=== PATIENT | male | born 1985 | race Caucasian/White ===

== ENCOUNTER 2023-11-02 08:19 | Outpatient (OUT) | payer OTHER, SELFPAY ==
[2023-11-02 08:57] LABS: Basophils Absolute Auto 0.1 10^3/uL (0.0-0.1); Basophils Percent Auto 0.8 % (0.2-2.0); Eosinophils Absolute Auto 0.1 10^3/uL (0.0-0.7); Eosinophils Percent Auto 1.4 % (0.9-7.0); Hematocrit 45.6 % (42.0-54.0); Hemoglobin 15.5 g/dL (14.0-18.0); Immature Granulocytes Abs Auto 0.02 10^3/uL (0.00-0.03); Immature Granulocytes Pct Auto 0.3 % (0.0-0.5); Lymphocytes Absolute Auto 1.9 10^3/uL (1.2-3.8); Lymphocytes Percent Auto 25.6 % (20.5-60.0); Mean Corpuscular Hemoglobin 32.9 pg (25.9-34.0); Mean Corpuscular Volume 96.8 fL (80.0-94.0); Mean Platelet Volume 10.7 fL (9.5-13.5); Monocytes Absolute Auto 0.7 10^3/uL (0.3-0.8); Monocytes Percent Auto 9.9 % (1.7-12.0); Neutrophils Absolute Auto 4.6 10^3/uL (1.4-6.5); Platelet Count 245 10^3/uL (150-450); Red Blood Count 4.71 10^6/uL (4.70-6.10); Red Cell Distribution Width 11.6 % (11.0-15.0); White Blood Count 7.4 10^3/uL (4.0-11.0)
[2023-11-02 09:04] LABS: Estimated Average Glucose 108 mg/dL; Glycohemoglobin A1C 5.4 % (4.5-6.2)
[2023-11-02 09:51] LABS: Alanine Aminotransferase 43 U/L (16-63); Albumin Globulin Ratio 1.2; Albumin Level 4.3 g/dL (3.4-5.0); Alkaline Phosphatase 63 U/L (46-116); Anion Gap 13.1; Aspartate Amino Transferase 33 U/L (15-37); BUN Creatinine Ratio 11.3; Bilirubin Total 1.6 mg/dL (0.2-1.0); Calcium 9.3 mg/dL (8.5-10.1); Carbon Dioxide 31.1 mmol/L (21.0-32.0); Chloride 103 mmol/L (98-107); Chol HDL Ratio 2.9; Cholesterol 172 mg/dL (<=200); Estimated GFR (African America >60 (>=60); Estimated GFR (Non-African Ame >60 (>=60); Globulin 3.5 g/dL; Glucose 89 mg/dL (74-106); HDL Cholesterol 60 mg/dL (40-60); LDL Cholesterol Calculated 99.2 mg/dL; Potassium 4.2 mmol/L (3.5-5.1); Sodium 143 mmol/L (136-145); Total Protein 7.8 g/dL (6.4-8.2); Triglycerides 64 mg/dL (<=150); VLDL CHOLESTEROL 12.8 mg/dL
== END 2023-11-02 08:20 | disposition home or self-care (01) ==
LOC: LAB 08:20
PROVIDERS: PCP Family Medicine; Visit Provider Family Medicine
DX: Z00.00 Encounter for general adult medical examination without abnormal findings (principal); E78.5 Hyperlipidemia, unspecified; R73.09 Other abnormal glucose
CPT/HCPCS: 36415; 80053; 80061; 83036; 85025

== ENCOUNTER 2023-11-18 15:47 | Outpatient (OUT) | payer OTHER, SELFPAY ==
[2023-11-18 16:53] LABS: Alanine Aminotransferase 26 U/L (16-63); Albumin Globulin Ratio 1.2; Albumin Level 4.2 g/dL (3.4-5.0); Alkaline Phosphatase 61 U/L (46-116); Anion Gap 6.4; Aspartate Amino Transferase 21 U/L (15-37); BUN Creatinine Ratio 13.2; Bilirubin Total 1.1 mg/dL (0.2-1.0); Calcium 8.9 mg/dL (8.5-10.1); Carbon Dioxide 32.4 mmol/L (21.0-32.0); Chloride 102 mmol/L (98-107); Estimated GFR (African America >60 (>=60); Estimated GFR (Non-African Ame >60 (>=60); Globulin 3.4 g/dL; Glucose 87 mg/dL (74-106); Potassium 3.8 mmol/L (3.5-5.1); Sodium 137 mmol/L (136-145); Total Protein 7.6 g/dL (6.4-8.2)
== END 2023-11-18 15:48 | disposition home or self-care (01) ==
LOC: LAB 15:47
PROVIDERS: PCP Family Medicine; Visit Provider Family Medicine
DX: R74.8 Abnormal levels of other serum enzymes (principal)
CPT/HCPCS: 36415; 80053

== ENCOUNTER 2025-01-02 06:35 | Outpatient (OUT) | payer OTHER, SELFPAY ==
--- OUTSIDE RECORDS SUMMARY | 2025-01-02 06:40 | XMS_ITS | CCD ---
Author Organization [facility] Care Team Providers Care Library Paraprofessional Name Role Phone CHRISTY, DR VILLALOBOS Attending Unavailable HOY, DR VILLALOBOS Consulting Unavailable HOY, DR VILLALOBOS Primary Care Unavailable PAIGEY, DR VILLALOBOS Admitting Unavailable HOY, DR VILLALOBOS Attending Unavailable PAIGEY, DR VILLALOBOS Consulting Unavailable PAIGEY, DR VILLALOBOS Primary Care Unavailable HOY, DR VILLALOBOS Admitting Unavailable HOY, DR VILLALOBOS Consulting Unavailable HOY, DR VILLALOBOS Primary Care Unavailable HOY, DR VILLALOBOS Admitting Unavailable PAIGEY, DR VILLALOBOS Attending Unavailable Problems Active Problems Problem Classification Problem Date Documented Da te Episodic/Chronic Unclassified (2 sources) CONTACT W/AND (SUSP) EXPOS COVID-19; Translations: [CONTACT W/AND (SUSP) EXPOS COVID-19] Onset: 07-12-2022 Viral infection (1 source) COVID-19; Translations: [COVID-19] Onset: 07-12-2022 Past or Other Problems Problem Classification Problem Date Documented Da te Episodic/Chronic Deficiency and other anemia (1 source) Anemia, unspecified; Translations: [ANEMIA UNSPECIFIED] Onset: 09-02-2021 Episodic Diabetes mellitus without complication (1 source) Other abnormal glucose; Translations: [OTHER ABNORMAL GLUCOSE] Onset: 09-02-2021 Episodic Syncope (4 sources) Syncope and collapse; Translations: [SYNCOPE AND COLLAPSE] Onset: 09-27-2021 Episodic Unclassified (1 source) CONTACT W/AND (SUSP) EXPOS COVID-19; Translations: [CONTACT W/AND (SUSP) EXPOS COVID-19] Onset: 07-11-2022 Results Test Name Value Interpretation Reference Range [facility] SARS-CoV-2 (COVID-19) RNA JOSELYN+probe Ql (Unsp spec) Detected Critically abnormal NOT DETECTED [facility] Comment on above: Result Comment: This test is not yet approved or cleared by the [place] FDA. When there are no FDA-approved or cleared tests available, and other criteria are met, FDA can make tests available under an emergency access mechanism called an Emergency Use Authorization (EUA). The EUA for this test is supported by the Health Sanitarian of Health and Human Service's declaration that circumstances exist to justify the emergency use of in vitro diagnostics for the detection and/or diagnosis of the virus that causes COVID-19. This EUA will remain in effect for the duration of the COVID-19 declaration justifying emergency of IVDs, unless it is terminated or revoked by the FDA (after which the test may no longer be used). Performed By: #### C VDTBH #### [facility] [address] [place] [address] Dr. Kobe Phillips FREE THYROXINE INDEX T7on FTI 2.14 Normal [facility] Comment on above: Performed By: #### T 7, TSH #### [facility] [address] [place] [address] Dr. Kobe Phillips T3U 34.0 % Normal 23.5-40.5 [facility] Comment on above: Performed By: #### T 7, TSH #### [facility] [address] [place] [address] Dr. Kobe Phillips T4 [Mass/Vol] 6.30 ug/dL Normal 5.53-11.00 [facility] Comment on above: Performed By: #### T 7, TSH #### [facility] [address] [place] [address] Dr. Kobe Phillips TSHon 09-27-2021 TSH 3.672 uIU/mL Normal 0.470-4.680 [facility] Comment on above: Performed By: #### T 7, TSH #### [facility] [address] [place] [address] Dr. Kobe Phillips TSH RANGE SEE BELOW Normal [facility] Comment on above: Result Comment: <0.3 4 UIU/ml HYPERTHYROID 0.34-5.60 UIU/ml EUTHYROID >5.60 UIU/ml HYPOTHYROID Performed By: #### T 7, TSH #### [facility] [address] [place] [address] Dr. Kobe Phillips CBC AUTO DIFFon 08-28-2021 BASO # 0.0 103/ul Normal 0.0-0.1 [facility] Comment on above: Performed By: #### C BC #### [facility] [address] [place] [address] Dr. Kobe Phillips Basophils/100 WBC (Bld) 0.4 % Normal 0.2-2.0 [facility] Comment on above: Performed By: #### C BC #### [facility] [address] [place] [address] Dr. Kobe Phillips EO # 0.1 103/ul Normal 0.0-0.7 [facility] Comment on above: Performed By: #### C BC #### [facility] [address] [place] [address] Dr. Kobe Phillips Eosinophils/100 WBC (Bld) 0.7 % Critically low 0.9-7.0 [facility] Comment on above: Performed By: #### C BC #### [facility] [address] [place] [address] Dr. Kobe Phillips Erythrocyte distribution width (RBC) [Ratio] 11.7 % Normal 11.0-15.0 [facility] Comment on above: Performed By: #### C BC #### [facility] [address] [place] [address] Dr. Kobe Phillips Hematocrit (Bld) [Volume fraction] 41.4 % Critically low 42.0-54.0 [facility] Comment on above: Performed By: #### C BC #### [facility] [address] [place] [address] Dr. Kobe Phillips Hemoglobin (Bld) [Mass/Vol] 14.1 g/dL Normal 14.0-18.0 [facility] Comment on above: Performed By: #### C BC #### [facility] [address] [place] [address] Dr. Kobe Phillips IG # 0.03 10e3/ul Normal 0.00-0.03 [facility] Comment on above: Performed By: #### C BC #### [facility] [address] [address] [address] Kobe Phillips IG % 0.3 % Normal 0.0-0.5 [facility] Comment on above: Performed By: #### C BC #### [facility] [address] [place] [address] Dr. Kobe Phillips LYMPH # 2.5 103/ul Normal 1.2-3.8 [facility] Comment on above: Performed By: #### C BC #### [facility] [address] [place] [address] Dr. Kobe Phillips Lymphocytes/100 WBC (Bld) 26.2 % Normal 20.5-60.0 [facility] Comment on above: Performed By: #### C BC #### [facility] [address] [place] [address] Dr. Kobe Phillips MANUAL DIFF REQ NO Normal [facility] Comment on above: Performed By: #### C BC #### [facility] [address] [place] [address] Dr. Kobe Phillips MCH (RBC) [Entitic mass] 32.6 pg Normal 25.9-34.0 [facility] Comment on above: Performed By: #### C BC #### [facility] [address] [place] [address] Dr. Kobe Phillips MCHC (RBC) [Mass/Vol] 34.1 g/dL Normal 29.9-35.2 [facility] Comment on above: Performed By: #### C BC #### [facility] [address] [place] [address] Dr. Kobe Phillips MCV (RBC) [Entitic vol] 95.6 fL Critically high 80.0-94.0 [facility] Comment on above: Performed By: #### C BC #### [facility] [address] [place] [address] Dr. Kobe Phillips MONO # 0.8 103/ul Normal 0.3-0.8 [facility] Comment on above: Performed By: #### C BC #### [facility] [address] [address] [address] Kobe Phillips Monocytes/100 WBC (Bld) 7.9 % Normal 1.7-12.0 [facility] Comment on above: Performed By: #### C BC #### [facility] [address] [address] [address] Kobe Phillips NEUT # 6.2 103/ul Normal 1.4-6.5 [facility] Comment on above: Performed By: #### C BC #### [facility] [address] [address] [address] Kobe Phillips Neutrophils/100 WBC (Bld) 64.5 % Normal 43.0-75.0 [facility] Comment on above: Performed By: #### C BC #### [facility] [address] [address] [address] Kobe Phillips Platelet mean volume (Bld) [Entitic vol] 11.1 fL Normal 9.5-13.5 [facility] Comment on above: Performed By: #### C BC #### [facility] [address] [address] [address] Kobe Phillips PLT 39 103/ul Critically low 150-450 [facility] Comment on above: Result Comment: plts reviewed Performed By: #### C BC #### [facility] [address] [place] [address] Dr. Kobe Phillips RBC 4.33 106/ul Critically low 4.70-6.10 [facility] Comment on above: Performed By: #### C BC #### [facility] [address] [address] [address] Kobe Phillips WBC 9.6 103/ul Normal 4.0-11.0 [facility] Comment on above: Performed By: #### C BC #### [facility] [address] [address] [address] Kobe Phillips FREE THYROXINE INDEX T7on FTI 2.77 Normal [facility] Comment on above: Performed By: #### L IPID, CMP, T7, TSH #### [facility] [address] [address] [address] Kobe Phillips T3U 36.0 % Normal 23.5-40.5 [facility] Comment on above: Performed By: #### L IPID, CMP, T7, TSH #### [facility] [address] [address] [address] Kobe Phillips T4 [Mass/Vol] 7.70 ug/dL Normal 5.53-11.00 [facility] Comment on above: Performed By: #### L IPID, CMP, T7, TSH #### [facility] [address] [address] [address] Kobe Phillips GLYCOHEMOGLOBIN A1Con 2020 ADA RECOMMENDATION ADA THERAPEUTIC TARGET 6.0 - 7.0 ACTION SUGGESTED > 7.0 Normal [facility] Comment on above: Performed By: #### A 1C #### [facility] [address] [address] [address] Kobe Phillips Glucose [Mass/Vol] 105 mg/dL Normal [facility] Comment on above: Performed By: #### A 1C #### [facility] [address] [address] [address] Kobe Phillips HbA1c (Bld) [Mass fraction] 5.3 % Normal <=6.0 [facility] Comment on above: Performed By: #### A 1C #### [facility] [address] [address] [address] Kobe Phillips IRONon 08-28-2021 Iron [Mass/Vol] 104.0 ug/dL Normal 49.0-181.0 [facility] Comment on above: Performed By: #### I SARA #### [facility] [address] [address] [address] Kobe Phillips LIPID PROFILEon 08-28-2021 CHOL-HDL RATIO NORM SEE BELOW Normal [facility] Comment on above: Result Comment: 3.3 - 4.4 LOW RISK 4.4 - 7.1 AVERAGE RISK 7.1 - 11.0 MODERATE RISK >11.0 HIGH RISK Performed By: #### L IPID, CMP, T7, TSH #### [facility] [address] [address] [address] Kobe Phillips Cholesterol [Mass/Vol] 142 mg/dL Normal <=200 [facility] Comment on above: Performed By: #### L IPID, CMP, T7, TSH #### [facility] [address] [address] [address] Kobe Phillips Cholesterol in HDL [Mass/Vol] 44 mg/dL Normal [facility] Comment on above: Performed By: #### L IPID, CMP, T7, TSH #### [facility] [address] [address] [address] Kobe Phillips Cholesterol in LDL [Mass/Vol] 81.6 mg/dL Normal [facility] Comment on above: Performed By: #### L IPID, CMP, T7, TSH #### [facility] [address] [address] [address] Kobe Phillips Cholesterol.total/Ch olesterol in HDL [Mass ratio] 3.2 {ratio} Normal [facility] Comment on above: Performed By: #### L IPID, CMP, T7, TSH #### [facility] [address] [address] [address] Kobe Phillips HDL NORMAL > or = 60 mg/dl - LOW CARDIOVASCULAR RISK <40 mg/dl - HIGH CARDIOVASCULAR RISK Normal [facility] Comment on above: Performed By: #### L IPID, CMP, T7, TSH #### [facility] [address] [address] [address] Kobe Phillips LDL CALC NORMAL SEE BELOW Normal [facility] Comment on above: Result Comment: <100 mg/dl OPTIMAL 100 - 129 mg/dl NEAR OR ABOVE OPTIMAL 130 - 159 mg/dl BORDERLINE HIGH 160 - 189 mg/dl HIGH >190 mg/dl VERY HIGH Performed By: #### L IPID, CMP, T7, TSH #### [facility] [address] [address] [address] Kobe Phillips Triglyceride [Mass/Vol] 82 mg/dL Normal <=150 [facility] Comment on above: Performed By: #### L IPID, CMP, T7, TSH #### [facility] [address] [address] [address] Kobe Phillips VLDL CALC 16.4 mg/dL Normal [facility] Comment on above: Performed By: #### L IPID, CMP, T7, TSH #### [facility] [address] [address] [address] Kobe Phillips PROF 14(COMP METB)on 021 Albumin [Mass/Vol] 4.5 g/dL Normal 3.5-5.0 [facility] Comment on above: Performed By: #### L IPID, CMP, T7, TSH #### [facility] [address] [address] [address] Kobe Phillips Albumin/Globulin [Mass ratio] 1.5 {ratio} Normal [facility] Comment on above: Performed By: #### L IPID, CMP, T7, TSH #### [facility] [address] [address] [address] Kobe Phillips ALP [Catalytic activity/Vol] 51 U/L Normal 38-126 [facility] Comment on above: Performed By: #### L IPID, CMP, T7, TSH #### [facility] [address] [address] [address] Kobe Phillips ALT [Catalytic activity/Vol] 32 U/L Normal 21-72 [facility] Comment on above: Performed By: #### L IPID, CMP, T7, TSH #### [facility] [address] [address] [address] Kobe Phillips Anion gap [Moles/Vol] 12.0 mmol/L Normal [facility] Comment on above: Performed By: #### L IPID, CMP, T7, TSH #### [facility] [address] [address] [address] Kobe Phillips AST [Catalytic activity/Vol] 25 U/L Normal 17-59 [facility] Comment on above: Performed By: #### L IPID, CMP, T7, TSH #### [facility] [address] [address] [address] Kobe Phillips Bilirubin [Mass/Vol] 1.7 mg/dL Critically high 0.2-1.3 [facility] Comment on above: Performed By: #### L IPID, CMP, T7, TSH #### [facility] [address] [address] [address] Kobe Phillips Calcium [Mass/Vol] 9.1 mg/dL Normal 8.4-10.2 [facility] Comment on above: Performed By: #### L IPID, CMP, T7, TSH #### [facility] [address] [address] [address] Kobe Phillips Chloride [Moles/Vol] 99 mmol/L Normal 98-107 [facility] Comment on above: Performed By: #### L IPID, CMP, T7, TSH #### [facility] [address] [place] [address] Dr. Kobe Phillips CO2 [Moles/Vol] 29.9 mmol/L Normal 22.0-30.0 [facility] Comment on above: Performed By: #### L IPID, CMP, T7, TSH #### [facility] [address] [place] [address] Dr. Kobe Phillips Creatinine [Mass/Vol] 1.20 mg/dL Normal 0.66-1.25 [facility] Comment on above: Performed By: #### L IPID, CMP, T7, TSH #### [facility] [address] [place] [address] Dr. Kobe Phillips EGFR-AF KAZAKH >60 Normal >=60 [facility] Comment on above: Performed By: #### L IPID, CMP, T7, TSH #### [facility] [address] [place] [address] Dr. Kobe Phillips EGFR-NON AF KAZAKH >60 Normal >=60 [facility] Comment on above: Performed By: #### L IPID, CMP, T7, TSH #### [facility] [address] [place] [address] Dr. Kobe Phillips Globulin (S) [Mass/Vol] 3.1 g/dL Normal [facility] Comment on above: Performed By: #### L IPID, CMP, T7, TSH #### [facility] [address] [address] [address] Kobe Phillips Glucose [Mass/Vol] 86 mg/dL Normal 74-106 [facility] Comment on above: Performed By: #### L IPID, CMP, T7, TSH #### [facility] [address] [place] [address] Dr. Kobe Phillips Potassium [Moles/Vol] 3.9 mmol/L Normal 3.4-5.0 [facility] Comment on above: Performed By: #### L IPID, CMP, T7, TSH #### [facility] [address] [place] [address] Dr. Kobe Phillips Protein [Mass/Vol] 7.6 g/dL Normal 6.1-8.2 [facility] Comment on above: Performed By: #### L IPID, CMP, T7, TSH #### [facility] [address] [place] [address] Dr. Kobe Phillips Sodium [Moles/Vol] 137 mmol/L Normal 137-145 [facility] Comment on above: Performed By: #### L IPID, CMP, T7, TSH #### [facility] [address] [place] [address] Dr. Kobe Phillips Urea nitrogen [Mass/Vol] 14.0 mg/dL Normal 9.0-20.0 [facility] Comment on above: Performed By: #### L IPID, CMP, T7, TSH #### [facility] [address] [place] [address] Dr. Kobe Phillips Urea nitrogen/Creatinine [Mass ratio] 11.7 mg/mg Normal [facility] Comment on above: Performed By: #### L IPID, CMP, T7, TSH #### [facility] [address] [place] [address] Dr. Kobe Phillips TSHon 08-28-2021 TSH 5.789 uIU/mL Critically high 0.470-4.680 [facility] Comment on above: Performed By: #### L IPID, CMP, T7, TSH #### [facility] [address] [place] [address] Dr. Kobe Phillips TSH RANGE SEE BELOW Normal [facility] Comment on above: Result Comment: <0.3 4 UIU/ml HYPERTHYROID 0.34-5.60 UIU/ml EUTHYROID >5.60 UIU/ml HYPOTHYROID Performed By: #### L IPID, CMP, T7, TSH #### [facility] [address] [address] [address] Kobe Phillips Encounters Encounter Date Encounter Type Care Provider Facility Start: 07-11-2022 End: 07-11-[address] WILFREDO HARRISON Facility:[facility] Start: 09-27-2021 End: 09-28-[address] WILFREDO HARRISON Facility:[facility] Start: 08-28-2021 End: 08-29-[address] WILFREDO HARRISON Facility:[facility] Payers Date Payer Category Payer Unknown [id number] [id number] [id number] 1985 Unknown [id number] [id number] [id number] 1985 Unknown [id number] [id number] [id number] 1958 Unknown [id number] Summary Purpose Family History No Family History Records Found Advance Directives No Advanced Directives Records Found Additional Source Comments (unrecognized sect ion and content) No Status Records Found INFORMATION SOURCE (unrecogn ized section and content) DATE CREATED AUTHOR 07/16/2022 [facility] FOR RECORDS PERTAINING TO PATIENTS WHO ARE OR HAVE BEEN ENROLLED IN A CHEMICAL DEPENDENCY/SUBSTANCEABUSE PROGRAM, SOME INFORMATION MAY BE OMITTED. This clinical summary was aggregated from multiple sources. Caution should be exercised in using it in the provision of clinical care. This summary normalizes information from multiple sources, and as a consequence, information in this document may materially change the coding, format and clinical context of patient data. In addition, data may be omitted in some cases. CLINICAL DECISIONS SHOULD BE BASED ON THE PRIMARY CLINICAL RECORDS. [facility] [employer] [facility]. provides no warranty or guarantee of the accuracy or completeness of information in this document.
[2025-01-02 07:51] LABS: Basophils Absolute Auto 0.1 10^3/uL (0.0-0.1); Basophils Percent Auto 0.9 % (0.2-2.0); Eosinophils Absolute Auto 0.1 10^3/uL (0.0-0.7); Eosinophils Percent Auto 1.1 % (0.9-7.0); Hematocrit 42.1 % (42.0-54.0); Hemoglobin 14.5 g/dL (14.0-18.0); Immature Granulocytes Abs Auto 0.03 10^3/uL (0.00-0.03); Immature Granulocytes Pct Auto 0.4 % (0.0-0.5); Lymphocytes Absolute Auto 2.1 10^3/uL (1.2-3.8); Lymphocytes Percent Auto 27.8 % (20.5-60.0); Mean Corpuscular HGB Conc 34.4 g/dL (29.9-35.2); Mean Corpuscular Hemoglobin 33.3 pg (25.9-34.0); Mean Corpuscular Volume 96.6 fL (80.0-94.0); Mean Platelet Volume 11.4 fL (9.5-13.5); Monocytes Absolute Auto 0.7 10^3/uL (0.3-0.8); Monocytes Percent Auto 9.8 % (1.7-12.0); Neutrophils Absolute Auto 4.4 10^3/uL (1.4-6.5); Platelet Count 197 10^3/uL (150-450); Red Blood Count 4.36 10^6/uL (4.70-6.10); Red Cell Distribution Width 11.7 % (11.0-15.0); White Blood Count 7.4 10^3/uL (4.0-11.0)
[2025-01-02 07:56] LABS: Estimated Average Glucose 105 mg/dL; Glycohemoglobin A1C 5.3 % (4.5-6.2)
[2025-01-02 08:13] LABS: Alanine Aminotransferase 28 U/L (16-63); Albumin Globulin Ratio 1.3; Albumin Level 4.4 g/dL (3.4-5.0); Alkaline Phosphatase 63 U/L (46-116); Anion Gap 10.4; Aspartate Amino Transferase 23 U/L (15-37); BUN Creatinine Ratio 15.7; Calcium 9.2 mg/dL (8.5-10.1); Carbon Dioxide 30.3 mmol/L (21.0-32.0); Chloride 105 mmol/L (98-107); Chol HDL Ratio 2.5; Cholesterol 167 mg/dL (<=200); Estimated GFR (African America >60 (>=60 mL/min/1.73m^2); Estimated GFR (Non-African Ame >60 (>=60 mL/min/1.73m^2); Free T3 2.84 pg/mL (2.18-3.98); Globulin 3.3 g/dL; Glucose 94 mg/dL (74-106); HDL Cholesterol 67 mg/dL (40-60); Potassium 3.7 mmol/L (3.5-5.1); Sodium 142 mmol/L (136-145); Thyroid Stimulating Hormone 5.729 uIU/mL (0.358-3.740); Total Protein 7.7 g/dL (6.4-8.2); Triglycerides 64 mg/dL (<=150); VLDL CHOLESTEROL 12.8 mg/dL
[2025-01-03 08:12] LABS: Testosterone 535 ng/dL (264-916)
== END 2025-01-02 06:36 | disposition home or self-care (01) ==
PROVIDERS: PCP Family Medicine; Visit Provider Family Medicine
DX: Z00.00 Encounter for general adult medical examination without abnormal findings (principal); R53.83 Other fatigue
CPT/HCPCS: 36415; 80053; 80061; 83036; 84403; 84436; 84443; 84481; 85025

== ENCOUNTER 2025-03-11 15:38 | Outpatient (OUT) | payer OTHER, SELFPAY ==
--- OUTSIDE RECORDS SUMMARY | 2024-12-28 04:10 | XMS_ITS ---
Author Organization [facility] in [place] Address [address] [place] [address] Care Team Providers Care Internship Name Role Phone Marc Yates Primary Care Provider REASON FOR VISIT Needs yearly appt Encounters Encounter Location Date Provider Diagnosis [facility] [address] [place] [address] 12/28/2024 Marc Yates Plan Of Treatment No Information Progress Notes * Jered DISLADOB: 6 (39 yo M)Acc No.[id number]:12/28/2024 Patient: Harvey KINCAIDDONNIE Jered :1985 A ge:39 Y S ex:Male Address:[address] [place] [address] * true * Date: Generated for Pasquale aceves/Carlo/eTransmitting on: 0 03/11/2025 03:40 PM EDT
--- OUTSIDE RECORDS SUMMARY | 2024-12-30 11:45 | XMS_ITS ---
Author Organization [facility] in [place] Address [address] [place] [address] Care Team Providers Care Glass Fitter Name Role Phone SalvadorMarc nettles Primary Care Provider Allergies Allergen (clinical drug ingredient) Drug/Non Drug Allergy documented on EMR Reaction Allergy Type Onset Date Status cephalexin Cephalexin hives Drug Allergy Activ e REASON FOR VISIT ANNUAL Medications Medication SIG (Take, Route, Frequency, Duration) Notes Start Date End Date Status Triamcinolone Acetonide 0.1 % 1 application Externally Twice a day for 30 10/28/2023 Active Pantoprazole Sodium 40 MG TAKE 1 TABLET BY MOUTH EVERY DAY IN THE EVENING Orally Once a day for 30 days Active Social History Tobacco Use: Social History Observation Description Date Details (start date - stop date) Former Smoker NA - NA Tobacco Control (Standard) Question Answer Notes Tobacco use: Former smoker How long has it been since you last smoked? Less than 1 month AUDIT-C (Standard) Question Answer Notes Did you have a drink containing alcohol in the p ast year? No Points 0 Interpretation Negative Vital Signs Blood pressure systolic 122 mm Hg 12/31/19 25 Blood pressure diastolic 82 mm Hg 025 Height 78 in 12/30/2024 Weight 242 lbs 12/30/2024 BMI 27.96 kg/m2 12/30/2024 Encounters Encounter Location Date Provider Diagnosis [facility] [address] [place] [address] 12/30/2024 Marc Trudy Well adult Z00.0 0 Assessments Encounter Date Diagnosis (ICD Code) Assessment Notes Treatment Notes Treatment Clinical Notes Section Notes 12/30/2024 Well adult (ICD-10 - Z00.00) Plan Of Treatment Medication Medication Name Sig Start Date Stop Date Notes Pantoprazole Sodium 40 MG TAKE 1 TABLET BY MOUTH EVERY DAY IN THE EVENING Orally Once a day for 30 days Pending Test Test Name Order Date HEMOGLOBIN A1C (GLYCO) 12/30/2024 LIPID PANEL (CHOL/TRIG/HDL/LDL) 12/31/19 25 TESTOSTERONE, TOTAL 12/30/2024 THYROID PANEL (T4/TSH/FREE T3) 5 CMP (COMP MET BURNS) w/eGFR CKD-EPI 2024 CBC WITH DIFF 12/30/2024 Progress Notes * Jered DISLADOB: 6 (39 yo M)Acc No.[id number]:12/30/2024 Progress Note Patient: Jered DESAI Provider: Domitila Yates ([facility])MD :1985 A ge:39 Y S ex:Male Date:12/30/2024 Address:[address] [place] [address], [id number] Check In:03:39 PM ESTCheck O ut:04:52 PM EST Subjective: * Chief Complaints: * A NNUAL * HPI: G eneral: well adult needs refill of protonic - 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 * ROS: E ENT: hearing changes d enies. v isual changes d enies.?non-healing mouth sores d enies. s wollen glands or neck lumps d enies. h oarseness d enies. s ore throat d enies. d ifficulty swallowing d enies. n ose bleeds d enies. n ari congestion d enies. e ar ache d enies. e ar discharge?denies. r inging in ears d enies. l ight sensitivity d enies. e ye pain d enies. b lurring d enies. e ye irritation d enies. d ouble vision d enies.?vision loss d enies. G eneral/Constitutional: Sweats: D enies. F atigue d enies. S leep problems d enies. A norexia d enies. M alaise d enies. W eight loss d enies.?Fatigue or Weakness d enies. F ever or Chills d enies. C ardiovascular: Shortness of Breath w/lying flat d enies. L ightheadedness/dizziness d enies. C hest tightness/ heavy pressure d enies. S welling of legs, ankles, or feet d enies. W aking up with shortness of breath d enies. C hest pain denies. P alpitations d enies. W eight gain d enies. R espiratory: Chronic or frequent cough d enies. C oughing up blood?denies. D ifficulty breathing d enies. P roductive cough d enies. S noring?denies. S hortness of breath that awakens from sleep (PND) d enies. C hest pain d enies. S putum production d enies. W heezing d enies. M usculoskeletal: Joint pain d enies. J oint Fluid d enies. B ack pain d enies. K nee pain d enies. N vicente pain d enies. J oint Stiffness d enies. M uscle cramps d enies. W eakness of muscles d enies. A rthritis d enies. M uscle aches d enies. P ain in shoulder(s) d enies. S wollen joints d enies. * Active Problem List Z00.00 Well adult Modified On:10/28/2023W/U Status:confirmed * Medical History: * Surgical History: D enies Past Surgical History * Hospitalization/Major Diagno stic Procedure: D enies Past Hospitalization * Family History: F ather: alive. M other: alive, thyroid disease. S ister(s): alive. M aternal Grandmother: Breast Cancer, dementia, diagnosed with Other malignant neoplasm of unspecified site. M aternal aunt: Brain Cancer/Tumor, diagnosed with Other malignant neoplasm of unspecified site. 1 sister(s) - healthy. . * Social History: T obacco Use: T obacco Control (Standard) T obacco use: F ormer smoker H ow long has it been since you last smoked??Less than 1 month D rug/Alcohol: A TAISHA-C (Standard) D id you have a drink containing alcohol in the past year? N o P oints 0 I nterpretation N egative * Medications: T akingPantoprazole Sodium 40 MG Tablet Delayed Release TAKE 1 TABLET BY MOUTH EVERY DAY IN THE EVENING Triamcinolone Acetonide 0.1 % Cream 1 application Externally Twice a day Medication List reviewed and reconciled with the patientTaking Pantoprazole Sodium 40 MG Tablet Delayed Release TAKE 1 TABLET BY MOUTH EVERY DAY IN THE EVENING Taking Triamcinolone Acetonide 0.1 % Cream 1 application Externally Twice a day Medication List reviewed and reconciled with the patient * Allergies: C ephalexin: hives - Allergyno[Allergies Verified] Objective: * Vitals: W t:242lbs, Ht: 78 in, BP:122/82mm Hg, BMI:27.96Index, Ht-cm: 198.12 cm, Wt-k.77 kg. * Examination: P hysical Exam: GENERAL: w ell developed, well nourished, in no acute distress. HEAD: n ormocephalic/atraumatic. EYES: p upils equal, round and reactive to light, conjunctivae and sclerae normal. EARS: n o deformity or lesion of external ear, canals and TM appear normal bilaterally, TM's intact, not inflamed with normal light reflex, hearing grossly normal to conversational speech. NOSE: n o deformity, discharge, inflammation, or lesions.? MOUTH: m ucous membranes moist, normal oropharynx and posterior pharynx without lesions or exudates, tongue normal, dentition normal. NECK: n vicente supple, no masses or palpable cervical nodes, trachea midline, thyroid without nodules, masses, tenderness, or enlargement. CHEST: n o chest wall deformity, no chest wall tenderness.? LUNGS: n ormal respiratory effort and clear to auscultation, no wheezes, rales, or rhonchi, good air exchange. CARDIO: r egular rate and rhythm, normal S1 and S2, nor murmur, rub, or gallop. PULSES: n ormal capillary refill. ABDOMEN: s oft, non-distended, non-tender, no masses. MUSCULOSKELETAL: n o deformity or scoliosis noted, normal range of motion, joints normal, no erythema, edema, effusion, or ecchymosis. EXTREMITY: n o clubbing, cyanosis, edema, or deformity with normal ROM in both upper and lower bilateral extremities. NEUROLOGIC: g rossly normal. SKIN: n o rashes, ulcerations, or suspicious lesions. LYMPH NODES: n o cervical adenopathy, nodes normal. MENTAL STATUS: a lert and oriented x3, normal mood and affect. Assessment: * Assessment: 1. 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 3 weeks off cigarettes Examination Category Sub-Category Detail Notes Category Not es Physical Exam GENERAL: well developed, well nourished, in no acute distress HEAD: normocephalic/atraum atic EYES: pupils equal, round and reactive to light, conjunctivae and sclerae normal EARS: no deformity or lesi on of external ear, canals and TM appear normal bilaterally, TM's intact, not inflamed with normal light reflex, hearing grossly normal to conversational speech NOSE: no deformity, discha rge, inflammation, or lesions MOUTH: mucous membranes ver[address], normal oropharynx and posterior pharynx without lesions or exudates, tongue normal, dentition normal NECK: neck supple, no mass es or palpable cervical nodes, trachea midline, thyroid without nodules, masses, tenderness, or enlargement CHEST: no chest wall deform ity, no chest wall tenderness LUNGS: normal respiratory e ffort and clear to auscultation, no wheezes, rales, or rhonchi, good air exchange CARDIO: regular rate and rhy thm, normal S1 and S2, nor murmur, rub, or gallop PULSES: normal capillary ref ill ABDOMEN: soft, non-distended, non-tender, no masses RECTAL: MUSCULOSKELETAL: no deformity or scol iosis noted, normal range of motion, joints normal, no erythema, edema, effusion, or ecchymosis EXTREMITY: no clubbing, cyanosi s, edema, or deformity with normal ROM in both upper and lower bilateral extremities NEUROLOGIC: grossly normal SKIN: no rashes, ulceratio ns, or suspicious lesions LYMPH NODES: no cervical adenopat hy, nodes normal MENTAL STATUS: alert and oriented x 3, normal mood and affect
--- OUTSIDE RECORDS SUMMARY | 2025-01-02 07:40 | XMS_ITS ---
Author Organization [facility] in [place] Address [address] [place] [address] Care Team Providers Care Steaming Cabinet Tender Name Role Phone Marc Yates Primary Care Provider REASON FOR VISIT labs Problems Problem Type SNOMED Code ICD Code Onset Dates Problem Status W/U Status Risk Notes Problem Hypothyroid (E03.9) Active confirmed Encounters Encounter Location Date Provider Diagnosis [facility] [address] [place] [address] 01/02/2025 Marc Yates Hypothyroid E03. 9 Assessments Encounter Date Diagnosis (ICD Code) Assessment Notes Treatment Notes Treatment Clinical Notes Section Notes 01/02/2025 Hypothyroid (ICD-10 - E03.9) Plan Of Treatment Pending Test Test Name Order Date THYROID PANEL (T4/TSH/FREE T3) Progress Notes * Jered DISLADOB: 6 (39 yo M)Acc No.[id number]:01/02/2025 Patient: Jered DESAI :1985 A ge:39 Y S ex:Male Address:[address] [place] [address] Subjective: * Chief Complaints: * L abs * Medical History: * Surgical History: * Hospitalization/Major Diagno stic Procedure: * Medications: Objective: * Vitals: * Physical Examination: Assessment: * Assessment: 1. H ypothyroid - E03.9 (Primary) Plan: * Treatment: * Procedure Codes: * true * Date: Generated for Printi ng/Faxing/Romy on: 0 03/11/2025 03:40 PM EDT
--- OUTSIDE RECORDS SUMMARY | 2025-03-11 15:40 | XMS_ITS | Patient Health Record ---
Author Organization [facility] in [place] Address [address] [place] [address] Care Team Providers Care Nursing Student Name Role Phone Marc Yates Primary Care Provider [phone] Allergies Allergen (clinical drug ingredient) Drug/Non Drug Allergy documented on EMR Reaction Allergy Type Onset Date Status cephalexin Cephalexin hives Drug Allergy Activ e Results Component Value Reference Range Notes CBC AUTO DIFF Reviewed date:01/02/2025 11:43:41 AM Interpretation: Performing Lab: Notes/Report: [facility] , White Blood Count 7.4 4.0-11.0 10 3/uL Red Blood Count 4.36 4.70-6.10 10 6/uL Hemoglobin 14.5 14.0-18.0 g/dL Hematocrit 42.1 42.0-54.0 % Mean Corpuscular Volume 96.6 80.0-94.0 fL Mean Corpuscular Hemoglobin 33.3 25.9-34.0 pg Mean Corpuscular HGB Conc 34.4 29.9-35.2 g/dL Red Cell Distribution Width 11.7 11.0-15.0 % Platelet Count 197 150-450 10 3/uL Mean Platelet Volume 11.4 9.5-13.5 fL Neutrophils Percent Auto 60.0 43.0-75.0 % Lymphocytes Percent Auto 27.8 20.5-60.0 % Monocytes Percent Auto 9.8 1.7-12.0 % Eosinophils Percent Auto 1.1 0.9-7.0 % Basophils Percent Auto 0.9 0.2-2.0 % Immature Granulocytes Pct Auto 0.4 0.0-0.5 % Neutrophils Absolute Auto 4.4 1.4-6.5 10 3/uL Lymphocytes Absolute Auto 2.1 1.2-3.8 10 3/uL Monocytes Absolute Auto 0.7 0.3-0.8 10 3/uL Eosinophils Absolute Auto 0.1 0.0-0.7 10 3/uL Basophils Absolute Auto 0.1 0.0-0.1 10 3/uL Immature Granulocytes Abs Auto 0.03 0.00-0.03 10 3/uL Performing Lab: see note ML - [facility] FREE T3 Reviewed date:01/02/2025 11:43:41 AM Interpretation: Performing Lab: Notes/Report: [facility] , Free T3 2.84 2.18-3.98 pg/mL Performing Lab: see note ML - [facility] GLYCOHEMOGLOBIN A1C Reviewed date:01/02/2025 11:43:41 AM Interpretation: Performing Lab: Notes/Report: [facility] , Glycohemoglobin A1C 5.3 4.5-6.2 % ADA RECOMMENDED LIMIT 4.0 - 6.0 ADA THERAPEUTIC TARGET < 7.0 ACTION SUGGESTED > 7.0 Estimated Average Glucose 105 Performing Lab: see note ML - [facility] LB LIPID PROFILE Reviewed date:01/02/2025 11:43:41 AM Interpretation: Performing Lab: Notes/Report: [facility] , Triglycerides 64 <=150 mg/dL Cholesterol 167 <=200 mg/dL HDL Cholesterol 67 40-60 mg/dL <40 mg/dl - HIGH CARDIOVASCULAR RISK > or =60 mg/dl - LOW CARDIOVASCULAR RISK LDL Cholesterol Calculated 88.0 130-159 mg/dl BORDERLINE HIGH 160-189 mg/dl HIGH >190 mg/dl VERY HIGH 100-129 mg/dl NEAR OR ABOVE OPTIMAL <100 mg/dl OPTIMAL VLDL CHOLESTEROL 12.8 Chol HDL Ratio 2.5 >11.0 HIGH RISK 7.1 - 11.0 MODERATE RISK 3.3 - 4.4 LOW RISK 4.4 - 7.1 AVERAGE RISK Performing Lab: see note - [facility] LB PROF 14(COMP METB) Reviewed date:01/02/2025 11:43:41 AM Interpretation: Performing Lab: Notes/Report: [facility] , Sodium 142 136-145 mmol/L Potassium 3.7 3.5-5.1 mmol/L Chloride 105 98-107 mmol/L Carbon Dioxide 30.3 21.0-32.0 mmol/L Anion Gap 10.4 Glucose 94 74-106 mg/dL Blood Urea Nitrogen 16.0 7.0-18.0 mg/dL Creatinine 1.02 0.70-1.30 mg/dL Estimated GFR ( Tracie >60 >=60 mL/min/1.73m 2 Estimated GFR (Non- Kristine >60 >=60 mL/min/1.73m 2 BUN Creatinine Ratio 15.7 Calcium 9.2 8.5-10.1 mg/dL Bilirubin Total 1.0 0.2-1.0 mg/dL Aspartate Amino Transferase 23 15-37 U/L Alanine Aminotransferase 28 16-63 U/L Alkaline Phosphatase 63 46-116 U/L Total Protein 7.7 6.4-8.2 g/dL Albumin Level 4.4 3.4-5.0 g/dL Globulin 3.3 Albumin Globulin Ratio 1.3 Performing Lab: see note ML - [facility] LB T4 Reviewed date:01/02/2025 11:43:41 AM Interpretation: Performing Lab: Notes/Report: [facility] , T4 Thyroxine 6.30 4.50-12.10 ug/dL Performing Lab: see note ML - [facility] LB TSH Reviewed date:01/02/2025 11:43:41 AM Interpretation: Performing Lab: Notes/Report: [facility] , Thyroid Stimulating Hormone 5.729 0.358-3.740 u IU/mL Performing Lab: see note ML - [facility] LB Testosterone Reviewed date:01/03/2025 09:38:34 AM Interpretation: Performing Lab: Notes/Report: [facility] , Testosterone 535 264-916 ng/dL healthy nonobese males (BMI <30) between 19 and 39 years Performed at: [facility] Customer Advisor Specialist: Abdiel Bee PhD, Phone: [phone] [email or web address] [email or web address] [id number]. PMID: [id number]. [address] [place], [place] [id number] Adult male reference interval is based on a population of Performing Lab: see note - [facility] Reason For Referral No Information Medications Medication SIG (Take, Route, Frequency, Duration) [...] stop date) Former Smoker NA - NA Alcohol Screen (Audit-C) Question Answer Notes Did you have a drink containing alcohol in the p ast year? No Points 0 Interpretation Negative Tobacco Control (Standard) Question Answer Notes Tobacco use: Former smoker How long has it been since you last smoked? Less than 1 month AUDIT-C (Standard) Question Answer Notes Did you have a drink containing alcohol in the p ast year? No Points 0 Interpretation Negative Problems Problem Type SNOMED Code ICD Code Onset Dates Problem Status W/U Status Risk Notes Problem Hypothyroid (E03.9) Active confirmed Problem Well adult (378249295) Well adult (Z00.00) Active confirmed Vital Signs Blood pressure diastolic 82 mm Hg 12/30/2024 Height 78 in 12/30/2024 Blood pressure systolic 122 mm Hg 12/30/2024 Weight 242 lbs 12/30/2024 BMI 27.96 kg/m2 12/30/2024 Encounters Encounter Location Date Provider Diagnosis [id number] [place] [address] 12/28/2024 Mrac Hoy [facility] [address] [place] [address] 01/02/2025 Marc Hoy Hypothyroid E03. [address] [address] 12/30/2024 Marc Hoy Well adult Z00.0 0 Assessments Encounter Date Diagnosis (ICD Code) Assessment Notes Treatment Notes Treatment Clinical Notes Section Notes 12/30/2024 Well adult (ICD-10 - Z00.00) 01/02/2025 Hypothyroid (ICD-10 - E03.9) Plan Of Treatment Pending Test Test Name Order Date CMP (COMPLETE METABOLIC PANEL) 4 CMP (COMPLETE METABOLIC PANEL) 4 HEMOGLOBIN A1C (GLYCO) 10/28/2023 HEMOGLOBIN A1C (GLYCO) 12/30/2024 LIPID PANEL (CHOL/TRIG/HDL/LDL) 12/31/19 25 LIPID PANEL (CHOL/TRIG/HDL/LDL) 10/28/19 24 CBC WITH DIFF 10/28/2023 PROF 14(COMP METB) 11/03/2023 PROF CHEM 8 (BAS METB) 11/03/2023 TESTOSTERONE, TOTAL 12/30/2024 THYROID PANEL (T4/TSH/FREE T3) 5 THYROID PANEL (T4/TSH/FREE T3) 5 CMP (COMP MET BURNS) w/eGFR CKD-EPI 2024 CBC WITH DIFF 12/30/2024 Insurance Providers Payer Name Payer Address Payer Phone Subscriber Number Group Number Insured Name Patient Relationship to Insured Coverage Start Date Coverage End Date [facility] [address] [place], [place] [id number] Jered New Self - patient is the insured Medical (General) History Medical History History ICD Code COVID-19 U07.1 Eczema L30.9 Irritable bowel syndrome K58.9 Lymphadenopathy R59.1 Vasovagal syncope R55
[2025-03-11 16:25] LABS: Free T3 3.41 pg/mL (2.18-3.98); Thyroid Stimulating Hormone 1.576 uIU/mL (0.358-3.740)
== END 2025-03-11 15:39 | disposition home or self-care (01) ==
LOC: LAB 15:39
PROVIDERS: PCP Family Medicine; Visit Provider Family Medicine
DX: E03.9 Hypothyroidism, unspecified (principal)
CPT/HCPCS: 36415; 84436; 84443; 84481